=== PATIENT | female | born 1955 | race Caucasian/White ===

== ENCOUNTER 2022-06-19 12:18 | Outpatient (CLI) | payer BC, SELFPAY ==
--- NOTE | 2022-06-19 12:37 | MR_ITS ---
WS: [id number] MRI HEAD WITH CONTRAST WITH ATTENTION TO THE INTERNAL AUDITORY CANALS TECHNIQUE: Sagittal T1, T2 axial, T2 axial flair, axial susceptibility weighted imaging, axial diffus ion weighted images, and coronal T2 images were obtained. Pre and post T1 axial and post T1 coronal i mages. ADC and FSPGR images. Post gadolinium images with attention to the internal auditory canals. A xial fiesta imaging. CLINICAL INFORMATION: SENSORINEURAL HEARING LOSS,BILATERAL COMPARISON: None. FINDINGS: No evidence of restricted diffusion to suggest acute ischemia. Ventricular system and basal cisterns are patent. Mild small vessel changes. Mild parenchymal volume loss. Normal posterior fossa. Normal vascular flow voids at the skull base. No extra axial fluid collection s. No evidence of mass or mass effect. Paranasal sinuses and mastoid air cells well aerated. No hemos iderin on susceptibly weighted images. Normal optic chiasm and pituitary infundibulum. Moderate symme tric atrophy temporal lobes and hippocampal formations. Proximal 7th and 8th cranial nerves are normal in appearance. Normal trigeminal nerve root entry zone s. No evidence of enhancing IAC or CP angle mass. Normal dural venous sinuses. MR/MR iac's wo/w con* [id number] IMPRESSION: 1. Proximal 7th and 8th cranial nerves are normal in appearance. No evidence o f enhancing IAC or CP angle mass. 2. Paranasal sinuses and mastoid air cells well aerated. 3. Mild small vessel changes with mild parenchymal volume loss. 4. No hemosiderin on susceptibly weighted images. 5. No other suspicious findings.
== END 2022-06-19 12:19 | disposition home or self-care (01) ==
LOC: RAD 12:27
PROVIDERS: PCP Internal Medicine; Visit Provider Otolaryngology
DX: H90.3 Sensorineural hearing loss, bilateral (principal)
CPT/HCPCS: 70553; A9577

== ENCOUNTER → 2023-03-05 15:11 | Outpatient (BNVA) | payer MEDICARE, SELFPAY | PROVIDERS: PCP Internal Medicine; Visit Provider Dermatology | DX: L90.0 Lichen sclerosus et atrophicus (principal); L57.0 Actinic keratosis; L81.4 Other melanin hyperpigmentation; L57.8 Other skin changes due to chronic exposure to nonionizing radiation; L82.1 Other seborrheic keratosis; L81.5 Leukoderma, not elsewhere classified | CPT/HCPCS: 17000; 99213 ==

== ENCOUNTER 2023-03-25 11:43 | Outpatient (CLI) | payer MEDICARE, SELFPAY ==
--- NOTE | 2023-03-25 11:55 | MR_ITS ---
WS: [id number] MRI RIGHT SHOULDER HISTORY: R SHOULDER DERANGEMENT COMPARISON: Shoulder radiograph 12/09/2022 TECHNIQUE: Multiplanar sequences of the shoulder joint are submitted. Very minimal AC joint arthritis. Mild subacromial impingement. Small amount of fluid in the subacromi al bursa. No os acromion. Negative biceps tendon. High riding humeral head nearly abuts the undersurface of the acromion. Very significant encroachment upon the supraspinatus tendon. The supraspinatus tendon is very thin and has been encroached directl y over the humeral head. There is increased signal along the bursal and articular surfaces of the sup raspinatus tendon. There is no retraction or full-thickness tear. There is no atrophy. Infraspinatus and subscapularis tendons are normal. There is a small mixed signal lesion near the humeral neck whic h is probably an enchondroma measuring 8 x 6 mm. There is mild loss of cartilage surrounding the jazmyne ral head. IMPRESSION: 1. High riding humeral head with significant subacromial impingement upon the supraspinatus tendon. The tendon is very thin and intact with tendinopathy. No full-thickness tear. 2. No muscle atrophy or edema. 3. Mild AC joint arthritis.
== END 2023-03-25 11:44 | disposition home or self-care (01) ==
LOC: RAD 11:45
PROVIDERS: PCP Internal Medicine; Visit Provider Internal Medicine
DX: M24.811 Other specific joint derangements of right shoulder, not elsewhere classified (principal); M75.41 Impingement syndrome of right shoulder; M19.011 Primary osteoarthritis, right shoulder
CPT/HCPCS: 73221

== ENCOUNTER 2023-05-08 10:19 | Outpatient (CLI) | payer MEDICARE, SELFPAY ==
--- NOTE | 2023-05-08 10:28 | MR_ITS ---
WS: [id number] MRI BRAIN WITHOUT CONTRAST HISTORY: PERSISTENT POSTURAL PERCEPTUAL DIZZINESS COMPARISON: 06/19/2022 TECHNIQUE: Diffusion imaging, multiplanar T1, T2 and FLAIR imaging obtained. Patient refused IV contrast. No evidence for acute infarct or hemorrhage. Ye-white matter differentiation is normal. Moderate symmetric atrophy and mild small vessel ischemic disease. Very similar to the prior MRI from 06/19/2022. No progression. Ventricles and extra-axial spaces are normal. No inferior displacement of cerebellar tonsils. The sella turcica and pituitary gland are unremarkabl e. Dural venous sinuses and [place] of [place] demonstrate no abnormality on this unenhanced studies. Paranasal sinuses: Clear. Mastoid air cells: Normal. Calvarium and scalp: Intact. IMPRESSION: 1. No acute infarct or mass effect. No hemorrhage. 2. Mild atrophy and small vessel ischemic disease. 3. No mass at the cerebellopontine angles.
== END 2023-05-08 10:20 | disposition home or self-care (01) ==
LOC: RAD 10:22
PROVIDERS: PCP Internal Medicine; Visit Provider Electrodiagnostic Medicine
DX: R42 Dizziness and giddiness (principal)
CPT/HCPCS: 70551

== ENCOUNTER → 2023-06-10 14:17 | Outpatient (BNVA) | payer MEDICARE, SELFPAY | PROVIDERS: PCP Internal Medicine; Visit Provider Student in an Organized Health Care Education/Training Program | DX: M75.41 Impingement syndrome of right shoulder (principal) | CPT/HCPCS: 99203 ==

== ENCOUNTER 2023-08-21 09:30 | Outpatient (CLI) | payer MEDICARE, SELFPAY ==
--- NOTE | 2023-08-21 08:54 | MR_ITS ---
WS: [id number] MRI HEAD WITHOUT GADOLINIUM ENHANCEMENT WITH ATTENTION TO THE IACS. TECHNIQUE: Sagittal T1, T2 axial, T2 axial FLAIR, axial susceptibility weighted imaging, axial diffus ion weighted images, and coronal T2 images were obtained. Pre-gadolinium axial T1 imaging. Gadolinium not administered.. ADC and FSPGR images. Noncontrast IAC protocol utilized. CLINICAL INFORMATION: DIZZINESS GIDDINESS COMPARISON: 05/08/2023 and 06/19/2022 FINDINGS: Noncontrast IACs are normal in appearance. 7th and 8th cranial nerves appear normal. Normal visualize d trigeminal nerve root entry zones. Paranasal sinuses and mastoid air cells are well aerated. Normal optic chiasm and pituitary infundibulum. No evidence of restricted diffusion to suggest acute ischemia. No hemosiderin on susceptibly weighted disc. Mild small vessel changes. Mild parenchymal volume loss. No other suspicious findings. MR/MR iac's wo con [id number] IMPRESSION: 1. No evidence of restricted diffusion to suggest acute ischemia. 2. Mild small vessel changes with moderate parenchymal volume loss. 3. No hemosiderin on susceptibility-weighted images. 4. Noncontrast proximal 7th and 8th cranial nerves are normal in appearance. N ormal trigeminal nerve root entry zones. 5. Paranasal sinuses and mastoid air cells are well aerated.
== END 2023-08-21 09:31 | disposition home or self-care (01) ==
PROVIDERS: PCP Internal Medicine; Visit Provider Specialist
DX: R42 Dizziness and giddiness (principal)
CPT/HCPCS: 70551

== ENCOUNTER → 2023-09-23 09:25 | Outpatient (BNVA) | payer MEDICARE, SELFPAY | PROVIDERS: PCP Electrodiagnostic Medicine; Referring Provider Electrodiagnostic Medicine; Visit Provider Specialist | DX: G47.10 Hypersomnia, unspecified; G43.109 Migraine with aura, not intractable, without status migrainosus; R42 Dizziness and giddiness; R03.0 Elevated blood-pressure reading, without diagnosis of hypertension; G43.119 Migraine with aura, intractable, without status migrainosus | CPT/HCPCS: 36415; 83516; 83519; 99205 ==

== ENCOUNTER 2023-12-09 10:28 | Outpatient (CLI) | payer MEDICARE, SELFPAY ==
--- NOTE | 2023-12-09 10:32 | USCV_ITS ---
Charlotte Murphy Age: 68 Gender: F : 1955 Exam Date: 12/09/2023 10:46 Ordering Phys: Shon Cintron DO Technologist: CT Exam Location: [facility] [place] Indication: systolic click BP: / HR: Rhythm: Sinus Technical Quality: Adequate MEASUREMENTS (Male / Female) Normal Values FINDINGS Left Ventricle Normal left ventricular size, systolic function and wall thickness, with no regional wall motion abnormalities. Left ventricular ejection fraction is estimated at 60 %. Grade I/IV diastolic dysfunction (abnormal relaxation filling pattern), normal to mildly elevated filling pressures. Right Ventricle The right ventricle is normal in size and function. Right Atrium The right atrium is normal in size. Left Atrium The left atrium is normal in size. Mitral Valve Mildly thickened mitral valve. No mitral valve stenosis. Mild- moderate mitral valve regurgitation. Aortic Valve Moderate aortic valve calcification. No aortic valve stenosis. Moderate aortic valve regurgitation. Tricuspid Valve Mild tricuspid valve regurgitation. Pulmonic Valve Trace pulmonary valve regurgitation. Pericardium Normal pericardium without effusion. Aorta Normal ascending aorta dimension. IVC The inferior vena cava appears normal. CONCLUSIONS Normal left ventricular size, systolic function and wall thickness, with no regional wall motion abnormalities. Left ventricular ejection fraction is estimated at 60 %. Grade I/IV diastolic dysfunction (abnormal relaxation filling pattern), normal to mildly elevated filling pressures. Mildly thickened mitral valve. No mitral valve stenosis. Mild- moderate mitral valve regurgitation. Moderate aortic valve calcification. No aortic valve stenosis. Moderate aortic valve regurgitation. There is no pericardial effusion. Right atrial pressure is around 5 mm of mercury. Brennan Reed MD (Electronically Signed) Final Date: 09 December 2023 18:09 S
== END 2023-12-09 10:29 | disposition home or self-care (01) ==
LOC: RAD 10:29
PROVIDERS: PCP Electrodiagnostic Medicine; Visit Provider Electrodiagnostic Medicine
DX: I50.30 Unspecified diastolic (congestive) heart failure (principal); I34.0 Nonrheumatic mitral (valve) insufficiency; I35.1 Nonrheumatic aortic (valve) insufficiency
CPT/HCPCS: 93306

== ENCOUNTER 2023-12-09 13:29 | Outpatient (CLI) | payer MEDICARE, SELFPAY | END 2023-12-09 13:30 | disposition home or self-care (01) | LOC: SLEEP 13:32 | PROVIDERS: PCP Electrodiagnostic Medicine; Visit Provider Specialist | DX: G47.10 Hypersomnia, unspecified (principal); G43.109 Migraine with aura, not intractable, without status migrainosus; H49.00 Third [oculomotor] nerve palsy, unspecified eye | CPT/HCPCS: G0399 ==

== ENCOUNTER → 2023-12-25 10:25 | Outpatient (BNVA) | payer MEDICARE, SELFPAY | PROVIDERS: PCP Electrodiagnostic Medicine; Visit Provider Specialist | DX: R42 Dizziness and giddiness (principal); R03.0 Elevated blood-pressure reading, without diagnosis of hypertension; G43.119 Migraine with aura, intractable, without status migrainosus; H49.01 Third [oculomotor] nerve palsy, right eye; G47.10 Hypersomnia, unspecified | CPT/HCPCS: 99215 ==

== ENCOUNTER 2024-01-14 10:19 | Outpatient (RCR) | payer MEDICARE, SELFPAY | END 2024-01-31 23:59 | disposition home or self-care (01) | LOC: SPT 10:19 | PROVIDERS: Visit Provider Specialist | DX: R42 Dizziness and giddiness (principal) | CPT/HCPCS: 95992; 97112; 97161 ==

== ENCOUNTER 2024-01-28 12:39 | Outpatient (CLI) | payer MEDICARE, SELFPAY | END 2024-01-28 12:40 | disposition home or self-care (01) | PROVIDERS: Visit Provider Electrodiagnostic Medicine | DX: R09.02 Hypoxemia (principal); R94.2 Abnormal results of pulmonary function studies | CPT/HCPCS: 94010; 94726; 94729 ==

== ENCOUNTER 2024-03-30 09:03 | Outpatient (CLI) | payer MEDICARE, SELFPAY ==
--- NOTE | 2024-03-30 09:05 | CT_ITS ---
WS: [id number] CT chest wo con [id number] HISTORY: HYPOXEMIA TECHNIQUE: Axial imaging performed through the thorax. Coronal and sagittal reformats are submitted. All CT scans at [facility] use at least one of these dose optimization techniques: automated exposure control; mA and/or kV adjustment per patient size (includes targeted exams where dose is mat ched to clinical indication); or iterative reconstruction. CONTRAST: None DLP: 258.21 mGy.cm COMPARISON: None available. Lungs and central airway: Bilateral linear platelike areas of atelectasis in the lower lobes. Additio nal atelectasis in the RIGHT middle lobe and at the lingula. Mild pleural thickening along the LEFT f issure. There is a tiny pleural tag superior anterior LEFT upper lobe. Pleura: Normal. No pleural effusion. Heart and pericardium: Moderate cardiomegaly. No pericardial effusion. Mediastinum and emmanuel: Small mediastinal and hilar lymph nodes. Vessels: Pulmonary artery is mildly dilated and ectatic. Mild atherosclerosis aorta. Chest wall and lower neck: No soft tissue masses. Upper abdomen: No adrenal mass. Osseous structures: Increase in thoracic kyphosis. No osteoblastic or osteolytic bone disease. CT/CT chest wo con [id number] IMPRESSION: 1. No pneumonia or mass. 2. Bilateral lower lobe, RIGHT middle and lingular platelike areas of atelecta sis. 3. Mild pulmonary hypertension.
== END 2024-03-30 09:04 | disposition home or self-care (01) ==
LOC: RAD 09:04
PROVIDERS: PCP Electrodiagnostic Medicine; Visit Provider Electrodiagnostic Medicine
DX: R09.02 Hypoxemia (principal); J98.11 Atelectasis; I27.20 Pulmonary hypertension, unspecified; J92.9 Pleural plaque without asbestos; R91.8 Other nonspecific abnormal finding of lung field; I51.7 Cardiomegaly; R59.0 Localized enlarged lymph nodes; I72.8 Aneurysm of other specified arteries; I70.0 Atherosclerosis of aorta; M40.294 Other kyphosis, thoracic region
CPT/HCPCS: 71250

== ENCOUNTER → 2024-05-06 09:13 | Outpatient (BNVA) | payer MEDICARE, SELFPAY | PROVIDERS: PCP Electrodiagnostic Medicine; Visit Provider Specialist | DX: G31.84 Mild cognitive impairment of uncertain or unknown etiology (principal); R42 Dizziness and giddiness; R03.0 Elevated blood-pressure reading, without diagnosis of hypertension; G43.119 Migraine with aura, intractable, without status migrainosus; H49.01 Third [oculomotor] nerve palsy, right eye; G47.10 Hypersomnia, unspecified | CPT/HCPCS: 36415; 82607; 82746; 83520; 99215 ==